=== PATIENT | female | born 1960 | race Caucasian/White ===

== ENCOUNTER 2016-09-30 06:16 | Day surgery (SDC) | payer MEDICARE, OTHER ==
[~2016-09-30] VITALS: Ht 152.4 cm; Wt 65.3 kg
[~2016-09-30 06:16] MED LIST: CLARITIN10 MG PO; GENTAMICIN15 ML/BTL OP; LISINOPRIL20 M1 PO; LUBRICANT EYE DROPS OD; NASONEX50 MCG/ACT NAB; OMEPRAZOLE20 MG PO; TRAZODONE50 MG PO; TYLENOL 8 HOUR650 MG PO; VENLAFAXINE H37.5 M1 PO; VENLAFAXINE H37.5 MG PO; VESICARE5 M1 PO
[2016-09-30 09:03] VITALS: BP 120/63
== END 2016-09-30 09:22 | disposition home or self-care (01) ==
LOC: ENDO 06:16
PROVIDERS: ATTEND Surgery
PROC: 0DBN8ZX Excision of Sigmoid Colon, Via Natural or Artificial Opening Endoscopic, Diagnostic (ICD-10-PCS; principal; 2016-09-30)
PROC: 0DBL8ZX Excision of Transverse Colon, Via Natural or Artificial Opening Endoscopic, Diagnostic (ICD-10-PCS; 2016-09-30)
DX: Z12.11 Encounter for screening for malignant neoplasm of colon (principal); D12.3 Benign neoplasm of transverse colon; K63.5 Polyp of colon

== ENCOUNTER 2017-09-09 22:28 | Emergency (ER) | payer MEDICARE, OTHER ==
[~2017-09-09] VITALS: Ht 152.4 cm; Wt 67.0 kg
[2017-09-09] MEDS ORDERED: IBUPROFEN600 MG PO (22:57)
[2017-09-09] MEDS ORDERED: CIPROFLOXACN500 MG PO (22:57)
[2017-09-09 23:20] VITALS: BP 139/90
== END 2017-09-09 23:20 | disposition home or self-care (01) ==
LOC: ED 22:28
DX: L02.411 Cutaneous abscess of right axilla (principal)

== ENCOUNTER 2019-06-17 | Emergency (ER) | payer MEDICARE, OTHER ==
[~2019-06-17] MED LIST changes: +CIPROFLOXACN500 MG PO; +IBUPROFEN600 MG PO
[2019-06-17 11:35] LABS: HEMATOCRIT 40.5 % (37.0-47.0); HEMOGLOBIN 13.8 g/dl (12.0-16.0); IMMATURE GRANULOCYTES 0.7 % (0.0-5.0); MEAN CELL VOLUME 87.9 fL CALC (80.0-100.0); MEAN CORPUSCULAR HGB 29.9 pG CALC (26.0-32.0); MEAN CORPUSCULAR HGB CONC 34.1 g/dL CAL (32.0-36.0); NEUT# 4.44 thou/uL (2.00-7.15); RED BLOOD COUNT 4.61 mill/uL (4.20-5.60); RED CELL DISTRI WIDTH 13.9 % (11.5-15.5); URINE BILIRUBIN - DIPSTICK NEGATIVE (NEGATIVE); URINE BLOOD DIPSTICK SMALL (NEGATIVE); URINE COLOR YELLOW; URINE GLUCOSE - DIPSTICK >=1000 mg/dL (NEGATIVE); URINE KETONE TRACE mg/dL (NEGATIVE); URINE LEUK ESTERASE NEGATIVE (NEGATIVE); URINE NITRITE - DIPSTICK NEGATIVE (Negative); URINE PROTEIN - DIPSTICK TRACE mg/dL (NEG-TRACE); URINE SPECIFIC GRAVITY >=1.030; URINE UROBILINOGEN - DIPSTICK 0.2 E.U./dL (0.2)
[2019-06-17 11:49] LABS: URINE BACTERIA FEW hpf; URINE CALCIUM OXALATE CRYSTALS FEW lpf; URINE SQUAMOUS EPITHELIAL CELL MODERATE EPI/hpf (0-FEW); URINE WBC 0-2 WBC/hpf (0-5)
[2019-06-17] MEDS ORDERED: CLARITIN10 M2 PO (12:03)
[2019-06-17] MEDS ORDERED: VENLAFAXINE75 M2 PO (12:04)
[2019-06-17] MEDS ORDERED: AZO STANDARD PO (12:06)
[2019-06-17] MEDS ORDERED: WOMEN'S VITA PO (12:06)
[2019-06-17] MEDS ORDERED: RED YEAST600 MG PO (12:08)
[2019-06-17] MEDS ORDERED: METFORMIN HCL500 M1 PO (12:08)
[2019-06-17 12:13] LABS: ALBUMIN 4.3 g/dL (3.2-5.0); ALKALINE PHOSPHATASE 143 u/l (38-126); ANION GAP 14 (6-22 (CALC)); BUN 10 mg/dL (7-17); BUN/CREATININE RATIO 17 (12-20 (CALC)); CARBON DIOXIDE 24 mmol/l (22-30); CHLORIDE 101 mmol/l (95-108); CREATININE 0.6 mg/dL (0.5-1.0); GFR > 60 ML/MIN (>=60 (CALC)); GFR FOR AFR.AMER. > 60 ML/MIN (>=60 (CALC)); LIPASE 148 u/l (23-300); POTASSIUM 3.8 mmol/l (3.5-5.1); SGOT/AST 57 u/l (14-36); SODIUM 134 mmol/l (137-146); TOTAL PROTEIN 7.8 g/dL (6.3-8.2)
[2019-06-17 12:25] LABS: BILIRUBIN, TOTAL 0.6 mg/dL (0.0-1.4)
== END 2019-06-17 14:29 | disposition home or self-care (01) ==
PROVIDERS: Family Medicine
DX: R10.11 Right upper quadrant pain (principal); I10 Essential (primary) hypertension

== ENCOUNTER 2019-09-18 12:28 | Emergency (ER) | payer MEDICARE, OTHER ==
[~2019-09-18] VITALS: Ht 152.4 cm; Wt 61.8 kg
[~2019-09-18 12:28] MED LIST changes: +AZO STANDARD PO; +CLARITIN10 M2 PO; +METFORMIN HCL500 M1 PO; +RED YEAST600 MG PO; +VENLAFAXINE75 M2 PO; +WOMEN'S VITA PO
[2019-09-18] MEDS ORDERED: CALCI23 PO (12:53)
[2019-09-18 13:12] LABS: HEMATOCRIT 41.2 % (37.0-47.0); HEMOGLOBIN 13.2 g/dl (12.0-16.0); IMMATURE GRANULOCYTES 0.3 % (0.0-5.0); MEAN CELL VOLUME 90.9 fL CALC (80.0-100.0); MEAN CORPUSCULAR HGB 29.1 pG CALC (26.0-32.0); NEUT# 3.39 thou/uL (2.00-7.15); RED BLOOD COUNT 4.53 mill/uL (4.20-5.60)
[2019-09-18 13:14] LABS: URINE BLOOD DIPSTICK MODERATE (NEGATIVE); URINE COLOR YELLOW; URINE GLUCOSE - DIPSTICK 100 mg/dL (NEGATIVE); URINE KETONE NEGATIVE (NEGATIVE); URINE LEUK ESTERASE NEGATIVE (NEGATIVE); URINE NITRITE - DIPSTICK NEGATIVE (Negative); URINE PROTEIN - DIPSTICK NEGATIVE (NEG-TRACE); URINE SPECIFIC GRAVITY >=1.030
[2019-09-18 13:15] LABS: URINE BILIRUBIN - DIPSTICK SMALL (NEGATIVE)
[2019-09-18 13:16] LABS: URINE AMORPH SEDIMENT MANY hpf (NONE-FEW); URINE RBC 0-2 RBC/hpf (0-5)
[2019-09-18 13:32] LABS: ALBUMIN 4.7 g/dL (3.2-5.0); ALKALINE PHOSPHATASE 92 u/l (38-126); ANION GAP 12 (6-22 (CALC)); BILIRUBIN, TOTAL 0.5 mg/dL (0.0-1.4); BUN 13 mg/dL (7-17); BUN/CREATININE RATIO 14 (12-20 (CALC)); CARBON DIOXIDE 27 mmol/l (22-30); CHLORIDE 102 mmol/l (95-108); CREATININE 0.9 mg/dL (0.5-1.0); GFR > 60 ML/MIN (>=60 (CALC)); GFR FOR AFR.AMER. > 60 ML/MIN (>=60 (CALC)); LIPASE 184 u/l (23-300); POTASSIUM 3.9 mmol/l (3.5-5.1); SGOT/AST 44 u/l (14-36); SODIUM 137 mmol/l (137-146); TOTAL PROTEIN 7.9 g/dL (6.3-8.2)
[2019-09-18] MEDS ORDERED: HYDROCO/APAP1 TA9 PO (14:15)
[2019-09-18] MEDS ORDERED: TAMSULOSIN0.4 MG PO (14:15)
[2019-09-18] MEDS ORDERED: ZOFRAN4 MG/TAB PO (14:15)
[2019-09-18] MEDS ORDERED: CIPROFLOXACN500 MG PO (14:19)
[2019-09-18 14:30] VITALS: BP 138/71
== END 2019-09-18 14:30 | disposition home or self-care (01) ==
LOC: ED 12:28
DX: N20.1 Calculus of ureter (principal); E11.9 Type 2 diabetes mellitus without complications; I10 Essential (primary) hypertension; G51.0 Bell's palsy; Z79.84 Long term (current) use of oral hypoglycemic drugs; Z87.442 Personal history of urinary calculi

== ENCOUNTER 2020-01-22 11:58 | Emergency (ER) | payer MEDICARE, OTHER ==
[~2020-01-22] VITALS: Ht 152.4 cm; Wt 60.0 kg
[~2020-01-22 11:58] MED LIST changes: +CALCI23 PO; +HYDROCO/APAP1 TA9 PO; +TAMSULOSIN0.4 MG PO; +ZOFRAN4 MG/TAB PO
[2020-01-22 13:11] LABS: HEMATOCRIT 37.3 % (37.0-47.0); HEMOGLOBIN 12.5 g/dl (12.0-16.0); IMMATURE GRANULOCYTES 0.7 % (0.0-5.0); MEAN CELL VOLUME 87.1 fL CALC (80.0-100.0); MEAN CORPUSCULAR HGB 29.2 pG CALC (26.0-32.0); MEAN CORPUSCULAR HGB CONC 33.5 g/dL CAL (32.0-36.0); NEUT# 3.06 thou/uL (2.00-7.15); RED BLOOD COUNT 4.28 mill/uL (4.20-5.60); RED CELL DISTRI WIDTH 13.2 % (11.5-15.5)
[2020-01-22 13:40] LABS: ALBUMIN 4.1 g/dL (3.2-5.0); ALKALINE PHOSPHATASE 98 u/l (38-126); AMYLASE 63 u/l (30-110); ANION GAP 13 (6-22 (CALC)); BILIRUBIN, TOTAL 0.7 mg/dL (0.0-1.4); BUN 14 mg/dL (8-23); BUN/CREATININE RATIO 20 (12-20 (CALC)); C-REACTIVE PROTEIN 3.5 mg/dL (0-0.9); CARBON DIOXIDE 29 mmol/l (22-30); CHLORIDE 102 mmol/l (95-108); CREATININE 0.7 mg/dL (0.5-1.0); GFR > 60 ML/MIN (>=60 (CALC)); GFR FOR AFR.AMER. > 60 ML/MIN (>=60 (CALC)); LIPASE 80 u/l (23-300); POTASSIUM 3.9 mmol/l (3.5-5.1); SGOT/AST 30 u/l (9-36); SODIUM 139 mmol/l (137-146); TOTAL PROTEIN 7.9 g/dL (6.3-8.2)
[2020-01-22 14:11] LABS: URINE BLOOD DIPSTICK NEGATIVE (NEGATIVE); URINE COLOR YELLOW; URINE GLUCOSE - DIPSTICK NEGATIVE (NEGATIVE); URINE KETONE TRACE mg/dL (NEGATIVE); URINE LEUK ESTERASE NEGATIVE (NEGATIVE); URINE NITRITE - DIPSTICK NEGATIVE (Negative); URINE PROTEIN - DIPSTICK TRACE mg/dL (NEG-TRACE); URINE SPECIFIC GRAVITY 1.025
[2020-01-22 14:26] LABS: URINE BILIRUBIN - DIPSTICK NEGATIVE (NEGATIVE)
[2020-01-22] MEDS ORDERED: LEVAQUIN750 M1 PO (14:35)
[2020-01-22] MEDS ORDERED: MEDDOSEPAK PO (14:35)
[2020-01-22] MEDS ORDERED: TESSALON PER100 MG PO (14:35)
[2020-01-22 14:52] VITALS: BP 124/68
== END 2020-01-22 14:55 | disposition home or self-care (01) ==
LOC: ED 11:58
DX: U07.1 COVID-19 (principal); J40 Bronchitis, not specified as acute or chronic; R52 Pain, unspecified; R11.0 Nausea; R51.9 Headache, unspecified; I10 Essential (primary) hypertension; E11.9 Type 2 diabetes mellitus without complications; K21.9 Gastro-esophageal reflux disease without esophagitis; Z79.84 Long term (current) use of oral hypoglycemic drugs

== ENCOUNTER 2020-05-26 10:18 | Emergency (ER) | payer MEDICARE, OTHER ==
[~2020-05-26 10:18] MED LIST changes: +LEVAQUIN750 M1 PO; +MEDDOSEPAK PO; +TESSALON PER100 MG PO
[2020-05-26] MEDS ORDERED: CRESTOR5 MG PO (11:35)
[2020-05-26] MEDS ORDERED: CALCIUM + D3 601 TAB PO (11:36)
[2020-05-26] MEDS ORDERED: LISINOPRIL10 MG PO (11:36)
[2020-05-26] MEDS ORDERED: DOXYCYCL HYC100 MG PO (11:47)
[2020-05-26 12:09] VITALS: BP 127/81
== END 2020-05-26 12:09 | disposition home or self-care (01) ==
LOC: ED 10:18
DX: T63.461A Toxic effect of venom of wasps, accidental (unintentional), initial encounter (principal); E11.9 Type 2 diabetes mellitus without complications; I10 Essential (primary) hypertension; K21.9 Gastro-esophageal reflux disease without esophagitis; Z79.84 Long term (current) use of oral hypoglycemic drugs

== ENCOUNTER 2021-04-05 08:18 | Day surgery (SDC) | payer MEDICARE, OTHER ==
[~2021-04-05] VITALS: Ht 152.4 cm; Wt 62.6 kg
[~2021-04-05 08:18] MED LIST changes: +BENADRYL ALLERG25 M1 PO; +CALCIUM + D3 601 TAB PO; +CRESTOR5 MG PO; +DOXYCYCL HYC100 MG PO; +FISH OIL1000 M2 PO; +LISINOPRIL10 MG PO; +TRESIBA FL100 UNIT/M IJ; +TRICOR145 MG PO
[2021-04-05 10:40] VITALS: BP 130/86
--- NOTE | 2021-04-11 11:57 | NUR ---
PER DR RAMIREZ, THE PATHOLOGY FOR THE COLONOSCOPY WAS NEGATIVE. ALSO TO REPEAT IN 5 YEARS. I ADVISED THE PATIENT OF THE SAME. SHE DID NOT HAVE ANY QUESTIONS OR CONCERNS.
== END 2021-04-05 10:55 | disposition home or self-care (01) ==
LOC: ENDO 08:18
PROVIDERS: ATTEND Surgery
PROC: 0DBL8ZX Excision of Transverse Colon, Via Natural or Artificial Opening Endoscopic, Diagnostic (ICD-10-PCS; principal; 2021-04-05)
DX: Z12.11 Encounter for screening for malignant neoplasm of colon (principal); D12.3 Benign neoplasm of transverse colon; E11.9 Type 2 diabetes mellitus without complications; I10 Essential (primary) hypertension; F32.A Depression, unspecified; E78.5 Hyperlipidemia, unspecified; Z79.84 Long term (current) use of oral hypoglycemic drugs

== ENCOUNTER 2022-09-23 10:10 | Day surgery (SDC) | payer MEDICARE, MEDICAID ==
[~2022-09-23] VITALS: Ht 152.4 cm; Wt 62.1 kg
[2022-09-23 13:18] VITALS: BP 107/78
== END 2022-09-23 13:05 | disposition home or self-care (01) ==
LOC: ORM 10:10
PROVIDERS: ATTEND Internal Medicine Gastroenterology
PROC: 0DBN8ZX Excision of Sigmoid Colon, Via Natural or Artificial Opening Endoscopic, Diagnostic (ICD-10-PCS; principal; 2022-09-23)
PROC: 0DB98ZX Excision of Duodenum, Via Natural or Artificial Opening Endoscopic, Diagnostic (ICD-10-PCS; 2022-09-23)
PROC: 0DB78ZX Excision of Stomach, Pylorus, Via Natural or Artificial Opening Endoscopic, Diagnostic (ICD-10-PCS; 2022-09-23)
PROC: 0DB48ZX Excision of Esophagogastric Junction, Via Natural or Artificial Opening Endoscopic, Diagnostic (ICD-10-PCS; 2022-09-23)
DX: K29.50 Unspecified chronic gastritis without bleeding (principal); K44.9 Diaphragmatic hernia without obstruction or gangrene; K31.7 Polyp of stomach and duodenum; K59.09 Other constipation; K63.5 Polyp of colon; K64.8 Other hemorrhoids; K21.9 Gastro-esophageal reflux disease without esophagitis; N20.0 Calculus of kidney; K76.0 Fatty (change of) liver, not elsewhere classified; E11.9 Type 2 diabetes mellitus without complications; Z79.4 Long term (current) use of insulin; Z79.84 Long term (current) use of oral hypoglycemic drugs; Z86.010 Personal history of colon polyps